=== PATIENT | male | born 1960 | race Caucasian/White ===

== ENCOUNTER → 2023-10-25 | Outpatient (CLI) | payer OTHER ==
[~2023-10-25] MED LIST: FUROSEMIDE20 MG PO; HYDR1TAB94 PO; LISI5 PO
== END ==
LOC: LAB SHORT 18:56 → LAB 18:56
DX: L03.115 Cellulitis of right lower limb (principal)
CPT/HCPCS: 87070; 87075; 87186; 87205

== ENCOUNTER 2023-11-17 00:47 | Emergency (ER) | payer OTHER ==
[~2023-11-17] VITALS: Ht 177.8 cm; Wt 113.4 kg
[2023-11-17 05:04] VITALS: BP 143/91
[2023-11-17] MEDS ORDERED: OxyCODONE HCL 5 MG TAB PO ONE (06:40)
[2023-11-17] MEDS ORDERED: Diphth,Pertuss(Acell),Tet Vac 0.5 ML VIAL IM ONE (06:40)
[2023-11-17] MEDS ORDERED: Acetaminophen 500 MG Tab PO ONE (06:40)
[2023-11-17] MEDS ORDERED: Cephalexin Monohydrate 500 MG Cap PO ONE (07:10)
[2023-11-17] MEDS ORDERED: Roxicodone5 MG PO (08:18)
[2023-11-17] MEDS ORDERED: CEPH500 PO (08:18)
== END 2023-11-17 08:00 | disposition home or self-care (01) ==
LOC: ER 00:47
DX: S81.812A Laceration without foreign body, left lower leg, initial encounter (principal); M25.562 Pain in left knee; I10 Essential (primary) hypertension; V20.49XA Other motorcycle driver injured in collision with pedestrian or animal in traffic accident, initial encounter; Z79.899 Other long term (current) drug therapy
CPT/HCPCS: 12002; 73560-LT; 73590; 90471; 90715; 99284-25; A9270

== ENCOUNTER 2023-12-30 02:09 | Day surgery (SDC) | payer OTHER ==
[~2023-12-30 02:09] MED LIST changes: +CEPH500 PO; +Roxicodone5 MG PO
[2023-12-30] MEDS ORDERED: Lidocaine HCl 4% Cream 5 GM ONE (12:21)
== END 2023-12-30 23:00 | disposition home or self-care (01) ==
LOC: WOUND 02:09
DX: L97.822 Non-pressure chronic ulcer of other part of left lower leg with fat layer exposed (principal); S81.802A Unspecified open wound, left lower leg, initial encounter; I87.2 Venous insufficiency (chronic) (peripheral); I73.9 Peripheral vascular disease, unspecified; I50.9 Heart failure, unspecified; X58.XXXA Exposure to other specified factors, initial encounter
CPT/HCPCS: A6213; A9270; G0463

== ENCOUNTER 2024-01-13 04:09 | Day surgery (SDC) | payer OTHER ==
[2024-01-13] MEDS ORDERED: Lidocaine HCl 4% Cream 5 GM ONE (14:26)
[2024-01-13] MEDS ORDERED: Silver Nitr/Potassium Nitrate 1 EA APPL ONE ×2 (14:38)
== END 2024-01-14 23:00 | disposition home or self-care (01) ==
LOC: WOUND 04:09
DX: S81.802A Unspecified open wound, left lower leg, initial encounter (principal); L97.822 Non-pressure chronic ulcer of other part of left lower leg with fat layer exposed; I87.2 Venous insufficiency (chronic) (peripheral); I73.9 Peripheral vascular disease, unspecified; X58.XXXA Exposure to other specified factors, initial encounter
CPT/HCPCS: A6213; A9270

== ENCOUNTER 2024-01-20 04:49 | Day surgery (SDC) | payer OTHER ==
[2024-01-20] MEDS ORDERED: Lidocaine HCl 4% Cream 5 GM ONE (15:14)
== END 2024-01-21 23:11 | disposition home or self-care (01) ==
LOC: WOUND 04:49
DX: S81.802D Unspecified open wound, left lower leg, subsequent encounter (principal); I87.2 Venous insufficiency (chronic) (peripheral); I11.0 Hypertensive heart disease with heart failure; I50.9 Heart failure, unspecified; I73.9 Peripheral vascular disease, unspecified; I89.0 Lymphedema, not elsewhere classified
CPT/HCPCS: 93970; A9270; G0463

== ENCOUNTER 2024-01-28 03:30 | Day surgery (SDC) | payer OTHER | END 2024-01-28 23:00 | LOC: WOUND 03:30 | DX: L97.822 Non-pressure chronic ulcer of other part of left lower leg with fat layer exposed (principal); I50.9 Heart failure, unspecified; S81.802D Unspecified open wound, left lower leg, subsequent encounter; X58.XXXD Exposure to other specified factors, subsequent encounter | CPT/HCPCS: G0463 ==

== ENCOUNTER 2024-02-04 02:33 | Day surgery (SDC) | payer OTHER | END 2024-02-04 23:00 | disposition home or self-care (01) | LOC: WOUND 02:33 | DX: L97.822 Non-pressure chronic ulcer of other part of left lower leg with fat layer exposed (principal); I87.2 Venous insufficiency (chronic) (peripheral); I11.0 Hypertensive heart disease with heart failure; I50.9 Heart failure, unspecified; I73.9 Peripheral vascular disease, unspecified | CPT/HCPCS: A6213; G0463 ==

== ENCOUNTER 2024-02-11 04:29 | Day surgery (SDC) | payer OTHER | END 2024-02-11 23:21 | disposition home or self-care (01) | LOC: WOUND 04:29 | DX: L97.822 Non-pressure chronic ulcer of other part of left lower leg with fat layer exposed (principal); I50.9 Heart failure, unspecified; S81.802A Unspecified open wound, left lower leg, initial encounter; I87.2 Venous insufficiency (chronic) (peripheral); I73.9 Peripheral vascular disease, unspecified; X58.XXXA Exposure to other specified factors, initial encounter | CPT/HCPCS: G0463 ==

== ENCOUNTER 2024-02-17 09:08 | Day surgery (SDC) | payer OTHER | END 2024-02-17 23:49 | disposition home or self-care (01) | LOC: WOUND 09:08 | DX: L97.822 Non-pressure chronic ulcer of other part of left lower leg with fat layer exposed (principal); I50.9 Heart failure, unspecified; I87.2 Venous insufficiency (chronic) (peripheral); I73.9 Peripheral vascular disease, unspecified | CPT/HCPCS: G0463 ==

== ENCOUNTER 2024-02-28 04:28 | Day surgery (SDC) | payer OTHER | END 2024-02-29 03:09 | disposition home or self-care (01) | LOC: WOUND 04:28 | DX: L97.822 Non-pressure chronic ulcer of other part of left lower leg with fat layer exposed (principal); I87.2 Venous insufficiency (chronic) (peripheral); I73.9 Peripheral vascular disease, unspecified; I50.9 Heart failure, unspecified | CPT/HCPCS: G0463 ==

== ENCOUNTER 2024-05-20 17:16 | Emergency (ER) | payer OTHER ==
[~2024-05-20] VITALS: Ht 182.9 cm; Wt 102.1 kg
[2024-05-20 18:02] VITALS: BP 161/90
[2024-05-20] MEDS ORDERED: AMOCLA875 PO (18:11)
== END 2024-05-20 18:13 | disposition home or self-care (01) ==
LOC: ER 17:16
DX: S61.451A Open bite of right hand, initial encounter (principal); I10 Essential (primary) hypertension; F17.200 Nicotine dependence, unspecified, uncomplicated; W54.0XXA Bitten by dog, initial encounter; Z79.899 Other long term (current) drug therapy
CPT/HCPCS: 99283